=== PATIENT | male | born 1990 | race Caucasian/White ===

== ENCOUNTER 2018-04-06 | Inpatient (IN) | payer OTHER ==
[~2018-04-06] MED LIST: CLARITIN10 MG PO; KEFLEX500 M1 PO; NKHM; ZITHROMAX Z PA250 MG PO; ZOFRAN4 MG PO
[2018-04-06 05:59] VITALS: BP 124/79
--- NOTE | 2018-04-06 06:31 | NUR ---
PT HAD A SYNCOPAL EPISODE WHILE LAB WAS DRAWING BLOOD CULTURES. BP 110/59 SWEATING, PT IMMEDIATELY AWAKENED AND A&OX3
[2018-04-06 06:33] LABS: HEMATOCRIT 43.4 % (42.0-52.0); HEMOGLOBIN 14.8 g/dl (14.0-18.0); MEAN CELL VOLUME 90.6 fl (80.0-94.0); MEAN CORPUSCULAR HGB 30.9 pg (27.0-31.0); MEAN CORPUSCULAR HGB CONC 34.1 g/dl (33.0-37.0); MEAN PLATELET VOLUME 9.6 fl (9.6-12.3); PLATELET COUNT AUTOMATED 316 10*3/uL (130-400); RED BLOOD COUNT 4.79 10*6/uL (4.50-5.90); RED CELL DISTRI WIDTH 14.7 % (0-14.5); WHITE BLOOD COUNT 18.9 10*3/uL (4.8-10.8)
[2018-04-06 06:48] LABS: ALBUMIN 3.4 gm/dl (3.1-4.5); ALKALINE PHOSPHATASE 73 U/L (45-117); BUN 9 mg/dl (7-24); CHLORIDE 107 mmol/L (98-107); CREATININE 0.83 mg/dL (0.70-1.30); POTASSIUM 3.7 mmol/L (3.5-5.1); SGOT/AST 10 IU/L (3-35); SGPT/ALT 33 U/L (12-78); SODIUM 138 mmol/L (136-145); TOTAL PROTEIN 8.3 gm/dL (6.4-8.2)
[2018-04-06 06:53] LABS: PLATELET SUFFICIENCY NORMAL (NORMAL); TOTAL CELLS COUNTED 100 #CELLS
[2018-04-06 07:19] VITALS: BP 113/67
--- NOTE | 2018-04-06 09:25 | NUR ---
PATIENT TAKEN TO 5TH FLOOR BY THIS NURSE. DENIES ANY WOUNDS A&OX4.
[2018-04-06 09:30] VITALS: BP 108/64
--- NOTE | 2018-04-06 09:30 | NUR ---
A 27, admitted to , under the services of CARLOS Leonard DO with a diagnosis of SEPSIS STREP TONSILITIS,TRIMUS. Chief complaint is SORE THROAT. Patient arrived via bed from ER. Monitor applied. Initial assessment completed. Vital signs taken and recorded. CARLOS LEONARD DO notified of admission to the unit. Orders received. See assessment for past medical history, medications and allergies. Patient and/or family oriented to unit. [facility] visitation policy reviewed. Clothing/patient valuable form completed. DADA WEST
[2018-04-06] MEDS ORDERED: EC NAPROSYN500 MG PO (10:16)
[2018-04-06 12:00] VITALS: BP 115/64
[2018-04-06 16:00] VITALS: BP 119/69
--- NOTE | 2018-04-06 16:11 | NUR ---
NOTIFIED DR HOLLEY OF PT C/O SORE THROAT AND COUGH.
--- NOTE | 2018-04-06 18:21 | NUR ---
Patient resting quietly with no c/o discomfort. Respirations easy and regular. Vital signs stable. No overt distress. DADA WEST
[2018-04-06 20:00] VITALS: BP 110/56
[2018-04-07] VITALS: BP 100/50
[2018-04-07 06:36] LABS: BASO % 0.1 % (0.0-1.0); HEMATOCRIT 40.2 % (42.0-52.0); HEMOGLOBIN 13.6 g/dl (14.0-18.0); LYMPH # 1.2 10*3/uL (1.3-4.4); LYMPH % 5.5 % (27.0-41.0); MEAN CELL VOLUME 91.4 fl (80.0-94.0); MEAN CORPUSCULAR HGB 30.9 pg (27.0-31.0); MEAN CORPUSCULAR HGB CONC 33.8 g/dl (33.0-37.0); MEAN PLATELET VOLUME 10.3 fl (9.6-12.3); MONO % 4.5 % (3.0-9.0); NEUT # 19.2 10*3/uL (2.3-7.9); NEUT % 88.7 % (47.0-73.0); PLATELET COUNT AUTOMATED 337 10*3/uL (130-400); RED CELL DISTRI WIDTH 14.9 % (0-14.5); WHITE BLOOD COUNT 21.7 10*3/uL (4.8-10.8)
[2018-04-07 06:47] LABS: BUN 11 mg/dl (7-24); CHLORIDE 112 mmol/L (98-107); CHOLESTEROL 130 mg/dL (<200); CREATININE 0.67 mg/dL (0.70-1.30); PHOSPHOROUS 3.1 mg/dL (2.5-4.9); POTASSIUM 4.3 mmol/L (3.5-5.1); SODIUM 142 mmol/L (136-145); TRIGLYCERIDES 67 mg/dl (<150); VLDL CHOLESTEROL 13 mg/dL (6-40)
[2018-04-07 06:56] LABS: HDL CHOLESTEROL 40 mg/dl (40-60); LDL CHOLESTEROL 77 mg/dL (9-159); THYROID STIM HORMONE (HS) 0.637 uIU/ml (0.358-4.75)
[2018-04-07 08:00] VITALS: BP 102/64
[2018-04-07 08:57] LABS: VITAMIN D, 25-HYDROXY 12.6 ng/mL (30-100)
[2018-04-07] MEDS ORDERED: AUGMENTIN 875875 MG PO (09:51)
[2018-04-07] MEDS ORDERED: EC NAPROSYN500 MG PO (09:51)
--- NOTE | 2018-04-07 10:53 | NUR ---
[place] in to talk to patient. Patient states lives at HOME with FIANCE. There are 6 steps in the home. Physician: NONE AT THIS TIME Pharmacy: [facility] Home health services: NONE Patient's level of ADLs: INDEPENDENT Patient has working utilities: YES DME: NONE Follow-up physician's appointment after d/c: WILL FIND ONE AND MAKE FOLLOW UP ON DISCHARGE Does patient want to access PORTAL?: NO Discharge plan PT STATES HE LIVES WITH FIANCE AND IS INDEPENDENT IN CARE. DENIES ANY HOME NEEDS ON DISCHARGE. WILL CONTINUE TO FOLLOW.. SAMANTHA GARCIA
--- NOTE | 2018-04-07 11:15 | NUR ---
CALLED [facility] WITH PT INFORMATION.
--- NOTE | 2018-04-07 11:16 | NUR ---
Discharge instructions reviewed with patient/family. Patient receptive and verbalizes understanding. Follow-up care arranged. Written instructions given to patient/family. DADA WEST
== END 2018-04-07 11:16 | disposition home or self-care (01) | DRG 872 ==
PROVIDERS: Emergency Medicine Emergency Medical Services; Student in an Organized Health Care Education/Training Program; ADMIT Emergency Medicine
DX: A40.0 Sepsis due to streptococcus, group A (principal); E44.1 Mild protein-calorie malnutrition; J03.00 Acute streptococcal tonsillitis, unspecified; J32.3 Chronic sphenoidal sinusitis; E66.9 Obesity, unspecified; F17.210 Nicotine dependence, cigarettes, uncomplicated; R73.9 Hyperglycemia, unspecified; J01.00 Acute maxillary sinusitis, unspecified; Z83.6 Family history of other diseases of the respiratory system; Z68.38 Body mass index [BMI] 38.0-38.9, adult

== ENCOUNTER 2019-11-18 11:35 | Emergency (ER) | payer OTHER ==
[~2019-11-18] VITALS: Ht 170.1 cm; Wt 108.9 kg
[~2019-11-18 11:35] MED LIST changes: +AUGMENTIN 875875 MG PO; +EC NAPROSYN500 MG PO
[2019-11-18] MEDS ORDERED: AUGMENTIN 875875 MG PO (13:00)
[2019-11-18] MEDS ORDERED: PREDNISONE20 M1 PO (13:00)
== END 2019-11-18 13:45 | disposition home or self-care (01) ==
LOC: ED 11:35
DX: J02.9 Acute pharyngitis, unspecified (principal); F17.200 Nicotine dependence, unspecified, uncomplicated; Z20.828 Contact with and (suspected) exposure to other viral communicable diseases

== ENCOUNTER 2021-03-13 22:36 | Emergency (ER) | payer OTHER ==
[~2021-03-13] VITALS: Ht 170.2 cm; Wt 108.9 kg
[~2021-03-13 22:36] MED LIST changes: +PREDNISONE20 M1 PO
[2021-03-13] MEDS ORDERED: SILVADENE,SSD C50 GM T (23:21)
[2021-03-13] MEDS ORDERED: IBUPROFEN600 MG PO (23:21)
[2021-03-13] MEDS ORDERED: HYDROCODONE-AC1 EAC1 PO (23:21)
== END 2021-03-13 23:41 | disposition home or self-care (01) ==
LOC: ED 22:36
DX: T23.102A Burn of first degree of left hand, unspecified site, initial encounter (principal); X12.XXXA Contact with other hot fluids, initial encounter; Y93.89 Activity, other specified; Y92.89 Other specified places as the place of occurrence of the external cause; Y99.8 Other external cause status

== ENCOUNTER 2021-05-19 02:07 | Emergency (ER) | payer OTHER ==
[~2021-05-19] VITALS: Wt 117.9 kg
[~2021-05-19 02:07] MED LIST changes: +HYDROCODONE-AC1 EAC1 PO; +IBUPROFEN600 MG PO; +SILVADENE,SSD C50 GM T
[2021-05-19] MEDS ORDERED: NAPROSYN500 MG PO (02:43)
== END 2021-05-19 02:58 | disposition home or self-care (01) ==
LOC: ED 02:07
DX: S93.402A Sprain of unspecified ligament of left ankle, initial encounter (principal); Z87.891 Personal history of nicotine dependence; W00.0XXA Fall on same level due to ice and snow, initial encounter; Y93.89 Activity, other specified; Y92.89 Other specified places as the place of occurrence of the external cause; Y99.8 Other external cause status